=== PATIENT | male | born 1955 | race Caucasian/White ===

== ENCOUNTER 2021-09-22 11:21 | Emergency (ER) | payer OTHER ==
[~2021-09-22] VITALS: Ht 170.2 cm; Wt 90.7 kg
[2021-09-22 11:27] VITALS: BP 157/106
--- NOTE | 2021-09-22 12:14 | NUR ---
PT C/O GENERALIZED WEAKNESS SINCE THIS AM. PT STATES WAS AT WORK AND HAD SUDDEN ONSET OF DIZZINESS AND WEAKNESS , NO FOCAL NEURO SYMPTOMS. AOX4. AMBULATES TO [facility] WITH STEADY GAIT. NAD. PENDING LABS. SAFETY MAINTAINED.
[2021-09-22 12:28] LABS: BASOPHILS # (AUTO) 0.1 K/uL (0.00-0.22); EOSINOPHILS # (AUTO) 0.1 K/uL (0-0.4); EOSINOPHILS % (AUTO) 1.8 % (0.0-4.0); HEMATOCRIT 42.6 % (36-52); HEMOGLOBIN 14.7 g/dL (12.0-18.0); LYMPHOCYTES # (AUTO) 1.5 K/uL (2.0-11.5); LYMPHOCYTES % (AUTO) 25.7 % (20.5-51.1); MEAN CORPUSCULAR HEMOGLOBIN 33 pg (27-31); MEAN CORPUSCULAR HGB CONC 35 g/dL (33-37); MEAN CORPUSCULAR VOLUME 95.7 fL (80-94); MONOCYTES # (AUTO) 0.3 K/uL (0.8-1.0); MONOCYTES % (AUTO) 5.8 % (1.7-9.3); NEUTROPHILS % (AUTO) 65.7 % (42.2-75.2); PLATELET COUNT (AUTO) 296 K/uL (140-450); RED BLOOD CELL COUNT(AUTO) 4.45 MIL/uL (4.20-6.10); RED CELL DISTRIBUTION WIDTH 13.6 % (11.6-13.7)
[2021-09-22 12:42] LABS: PROTHROMBIN TIME 10.8 secs (10.8-13.4)
--- NOTE | 2021-09-22 12:55 | NUR ---
JOSE [phone]
[2021-09-22 13:15] LABS: ALBUMIN 3.8 g/dL (3.4-5.0); CARBON DIOXIDE 26.9 mmol/L (21-32); POTASSIUM 3.9 mmol/L (3.5-5.1); TOTAL BILIRUBIN 0.5 mg/dL (0.0-1.0)
--- NOTE | 2021-09-22 13:33 | NUR ---
DR. CACERES EVALUATING PATIENT AT BEDSIDE.
--- NOTE | 2021-09-22 14:00 | NUR ---
SECOND EKG OBTAINED, RESULTS HANDED TO DR. CACERES TO EVALUATE.
[2021-09-22] MEDS ORDERED: NACL 0.9% 1,000 ML IV ONE (15:25)
[2021-09-22 15:47] VITALS: BP 161/93
--- NOTE | 2021-09-22 17:35 | NUR ---
Patient discharged with v/s stable. Written and verbal after care instructions given and explained. Patient verbalized understanding. Ambulatory with steady gait. All questions addressed prior to discharge. Advised to follow up with PMD.
== END 2021-09-22 17:34 | disposition home or self-care (01) ==
LOC: MED 11:21
DX: R00.2 Palpitations (principal); E11.9 Type 2 diabetes mellitus without complications; I10 Essential (primary) hypertension; Z79.84 Long term (current) use of oral hypoglycemic drugs
CPT/HCPCS: 36415; 71045; 71275; 80053; 83880; 84484; 85025; 85379; 85610; 85730; 93005; 96360; 99285; Q0092; Q9967